=== PATIENT | female | born 1975 | race Caucasian/White ===

== ENCOUNTER 2016-05-07 13:06 | Emergency (ER) | payer BC ==
[2016-05-07 16:10] VITALS: BP 124/77
--- NOTE | 2016-05-07 17:00 | RAD ---
Indication: Lateral malleolus and dorsal foot pain post fall skiing 12 days ago. Comparison: None. Technique: AP, lateral, and oblique views RIGHT foot. AP and lateral views of the RIGHT tibia and fibula. Report: Negative for fracture or articular malalignment at the lower leg. Unremarkable lower leg soft tissue contours. Normal articular alignment and preserved joint spaces at the foot. Negative for fracture or radiographic stigmata of stress reaction. Small os tibiale externum accessory ossicle noted. Unremarkable soft tissue contours. IMPRESSION: Negative radiographic exam of the RIGHT lower leg and foot. No fracture or stress reaction evident. Negative for malalignment.
--- NOTE | 2016-05-07 17:40 | UC ---
Lower Extremity/Ankle HPI - HPI Summary HPI Summary: WAS SKIING IN [place] ON 04/27/16 AND TWISTED RIGHT ANKLE WHILE WEARING SKIS. SINCE THAT TIME HAS HAD CONTINUED PAIN IN RIGHT FOOT AND ANKLE WITH WEIGHT BEARING. NO PREVIOUS INJURY TO ANKLE/FOOT - History of Current Complaint Chief Complaint: UCLowerExtremity Stated Complaint: ANKLE INJURY Time Seen by Provider: 05/07/16 16:17 Hx Obtained From: Patient Hx Last Menstrual Period: 05/01/16 Onset/Duration: Sudden Onset, Lasting Days, Still Present Severity Initially: Moderate Severity Currently: Mild Aggravating Factor(s): Standing, Ambulation Alleviating Factor(s): Rest, Elevation Able to Bear Weight: Yes - WITH PAAIN - Risk Factors Gout Risk Factors: Negative DVT Risk Factors: Negative Septic Arthritis Risk Factor: Negative - Allergies/Home Medications Allergies/Adverse Reactions: Allergies Allergy/AdvReac Type Severity Reaction Status Date / Time Valacyclovir [From Valtrex] Allergy Mild Dizziness Verified 05/07/16 16:11 Penicillins Allergy Anaphylatic Verified 05/07/15 14:23 Shock Pregabalin [From Lyrica] Allergy Dizziness Verified 05/07/15 14:24 Home Medications: Home Medications Montelukast Sodium TAB* [Singulair TAB*] 10 mg PO BEDTIME 05/07/16 [History Confirmed 05/07/16] Tizanidine HCl [Zanaflex] 4 mg PO 05/07/16 [History] PMH/Surg Hx/FS Hx/Imm Hx Previously Healthy: Yes Endocrine History Of: Denies: Diabetes, Thyroid Disease Cardiovascular History Of: Denies: Cardiac Disorders, Hypertension Respiratory History Of: Denies: COPD, Asthma GI/ History Of: Denies: Ulcer - Surgical History Surgical History: None Surgery Procedure, Year, and Place: denies - Family History Known Family History: Negative: Cardiac Disease, Other - NO FAMHX OF JOINT LAXITY OR CONNECTIVE TISSUE DISORDERS - Social History Occupation: Employed Full-time Lives: With Family Alcohol Use: Occasionally Substance Use Type: Marijuana Substance Use Comment - Amount & Last Used: one edible in [place] 04/28/16 Smoking Status (MU): Former Smoker Type: Cigarettes Length of Time of Smoking/Using Tobacco: 16 When Did the Patient Quit Smoking/Using Tobacco: 05/29 - Immunization History Most Recent Influenza Vaccination: denies Review of Systems Constitutional: Negative Skin: Negative Eyes: Negative ENT: Negative Respiratory: Negative Cardiovascular: Negative Gastrointestinal: Negative Genitourinary: Negative Motor: Negative Neurovascular: Negative Musculoskeletal: Arthralgia, Myalgia Neurological: Negative Psychological: Negative All Other Systems Reviewed And Are Negative: Yes Physical Exam Triage Information Reviewed: Yes Appearance: Well-Appearing, No Pain Distress, Well-Nourished, Thin Vital Signs: Initial Vital Signs Temp 97.9 F 05/07/16 16:03 Pulse 89 05/07/16 16:03 Resp 16 05/07/16 16:03 BP 124/77 05/07/16 16:03 Pulse Ox 100 05/07/16 16:03 Vital Signs Reviewed: Yes Eye Exam: Normal Eyes: Positive: Conjunctiva Clear ENT Exam: Normal ENT: Positive: Normal ENT inspection, Hearing grossly normal, Pharynx normal, TMs normal Dental Exam: Normal Neck exam: Normal Neck: Positive: Supple, Nontender, No Lymphadenopathy Respiratory Exam: Normal Respiratory: Positive: Chest non-tender, Lungs clear, Normal breath sounds, No respiratory distress, No accessory muscle use Cardiovascular Exam: Normal Cardiovascular: Positive: RRR, No Murmur, Pulses Normal Abdominal Exam: Normal Musculoskeletal: Positive: Strength Intact, ROM Intact, No Edema, Other: - PAIN TO PALPATION OF RIGHT LATERAL FOOT AND LATERAL LEG Neurological Exam: Normal Psychological Exam: Normal Skin Exam: Normal Lower Extremity Course/Dx - Differential Dx/Diagnosis Differential Diagnosis/HQI/PQRI: Contusion, Fracture (Closed), Sprain, Strain Provider Diagnoses: RIGHT ANKLE/FOOT SPRAIN Discharge - Discharge Plan Condition: Stable Disposition: HOME Patient Education Materials: Ankle Sprain (ED), Foot Sprain (ED) Referrals: [facility] [Outside] Prakash Duron [facility]MASTER [Primary Care Provider] - Additional Instructions: PHYSICAL THERAPY REFERRAL: You have been prescribed physical therapy. Treatments may include stretching, exercise, application of heat or cold, and other modalities. After an injury, PT can reduce swelling and pain. In recovery, PT is used to restore mobility and strength. Your specific treatment goals are: ____X_ Reduction of Swelling (EGS, US, ice as needed) ____X_ Pain Reduction (EGS, US, ice as needed) TENS Pack Fitting and Instruction Wound Hydrotherapy ___X__ Preservation of Mobility __X___ Baptist of Mobility ____X_ Strength Baptist __X___ Work or Sports Hardening This instruction sheet also serves as your PHYSICAL THERAPY REFERRAL! Please take it with you to the therapist, so he/she will be aware of your diagnosis and treatment plan. You may see the physical therapist of your choice for these treatments, but may wish to check with your insurance to be sure the provider you select is covered. It's important to see the doctor to whom you have been referred for follow up.
== END 2016-05-07 17:43 | disposition home or self-care (01) ==
LOC: UCEAST 13:06
DX: S93.401A Sprain of unspecified ligament of right ankle, initial encounter (principal); X50.1XXA Overexertion from prolonged static or awkward postures, initial encounter; Y93.9 Activity, unspecified; Y99.9 Unspecified external cause status; S93.601A Unspecified sprain of right foot, initial encounter
CPT/HCPCS: 99213; G0463

== ENCOUNTER 2016-12-03 08:38 | Emergency (ER) | payer BC ==
[2016-12-03] MEDS ORDERED: Ketorolac INJ* 60 MG/2 ML VIAL IM ONE (10:13)
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
[2016-12-03 10:39] VITALS: BP 106/72
== END 2016-12-03 10:58 | disposition home or self-care (01) ==
LOC: UCEAST 08:38
DX: G44.209 Tension-type headache, unspecified, not intractable (principal); Z87.891 Personal history of nicotine dependence; Z88.0 Allergy status to penicillin; Z88.8 Allergy status to other drugs, medicaments and biological substances
CPT/HCPCS: 96372; 99212; G0463; J1885